=== PATIENT | female | born 1965 | race Caucasian/White ===

== ENCOUNTER → 2016-07-21 | Outpatient (CLI) | payer OTHER ==
[~2016-07-21] MED LIST: FISH OIL 1,0001 EAC1 PO; FLAX SEED OIL1000 MG PO; GARLIC1 EAC1 PO; MIRALAX17 GM PO; SUDAFED 12 HOU120 MG PO; WELLBUTRIN XL150 M1 PO; WOMEN'S DAILY1 EACH PO
--- NOTE | 2016-08-10 13:43 | NUR ---
Called patient post breast biopsy. Biopsy sites are fine. No pain or redness. Patient states biopsy procedure went well.
== END | disposition disaster alternative care site (69) ==
LOC: GBCOE 13:15
DX: Z12.31 Encounter for screening mammogram for malignant neoplasm of breast (principal); N63 Unspecified lump in breast
CPT/HCPCS: G0202

== ENCOUNTER → 2016-07-27 | Outpatient (CLI) | payer OTHER | END | disposition disaster alternative care site (69) | LOC: GRAD 10:12 | DX: N63 Unspecified lump in breast (principal); Z98.890 Other specified postprocedural states ==

== ENCOUNTER → 2016-08-07 | Outpatient (CLI) | payer OTHER ==
[2016-08-07 10:20] LABS: BASOPHIL # 0.1 K/uL (0.0-0.2); BASOPHIL % 0.7 %; HEMATOCRIT 40.2 % (33.0-46.0); HEMOGLOBIN 13.1 g/dL (10.0-15.0); IMMATURE GRANULOCYTE % 0.4 %; LYMPHOCYTE # 2.9 K/uL (0.8-4.0); LYMPHOCYTE % 28.7 %; MCH 30.4 pg (27.0-34.0); MCHC 32.6 gm/dL (32.0-36.5); MCV 93.3 fl (83.0-98.0); MONOCYTE # 0.8 K/uL (0.0-1.0); MONOCYTE % 7.5 %; MPV 9.8 fl (9.4-12.4); NEUTROPHIL # (ANC) 6.3 K/uL (1.8-7.8); NEUTROPHIL % 62.7 %; NRBC % 0 /100WBC (0-0.00); PLATELET COUNT 272 K/uL (150-450); RBC 4.31 M/uL (3.50-5.50)
[2016-08-07 10:28] LABS: INR - (THERAPEUTIC) 0.93 (0.92-1.07); PROTIME 9.8 SECONDS (9.8-11.4)
== END | disposition disaster alternative care site (69) ==
LOC: GOPD 08-04
PROVIDERS: Family Medicine
PROC: 0H9U3ZX Drainage of Left Breast, Percutaneous Approach, Diagnostic (ICD-10-PCS; principal; 2016-08-07)
PROC: 0H9T3ZX Drainage of Right Breast, Percutaneous Approach, Diagnostic (ICD-10-PCS; 2016-08-07)
DX: D24.2 Benign neoplasm of left breast (principal); N64.1 Fat necrosis of breast; N60.21 Fibroadenosis of right breast; N63 Unspecified lump in breast; E66.01 Morbid (severe) obesity due to excess calories; Z68.38 Body mass index [BMI] 38.0-38.9, adult
CPT/HCPCS: J2250; J3010; J7030; J7050